=== PATIENT | male | born 1955 | race Caucasian/White ===

== ENCOUNTER → 2018-06-11 | Outpatient (CLI) | payer OTHER ==
--- NOTE | 2018-06-12 15:44 | PCVCIMAG ---
APPROVED REPORT Study performed: 06/11/2018 16:00:47 Exam: Stress Echocardiogram Indication: Chest pain Patient Location: Echo lab Stress Nurse: Karol Austin RN Room #: 1 Status: routine Ht: 6 ft 2 in HR: 62 bpm BP: 138/86 mmHg Rhythm: NSR Medical History Medical History: HTN Cardiac Risk Factors: HTN Previous Cardiac Procedures: none Pretest Chest Pain Characteristics: No chest pain Exercise History: Physically active Procedure The patient underwent an Exercise Stress Test using the Orestes Protocol. Blood pressure, heart rate, and EKG were monitored. An Echocardiogram was performed by food quality technician in four stages in quad fashion. At peak stress, four selected images were obtained and placed side by side with resting images for comparison. Stress Test Details Stress Test: Exercise stress testing was performed using a Orestes protocol. HR Resting HR: 62 bpmMax Heart Rate (APMHR): 156 bpm Max HR Achieved: 160 bpmTarget HR (85% APMHR): 132 bpm % of APMHR: 102 Recovery HR: 93 bpm HR response to stress: Normal HR response to stress BP Resting BP: 138/86 mmHg Max BP: 174/82 mmHg Recovery BP: 156/80 mmHg ECG Resting ECG: Sinus Rhythm Stress ECG: Sinus Rhythm ST Change: Non-ischemic Arrhythmia: Frequent PVCs Recovery ECG: Sinus Rhythm with occ PVCs Recovery ST Change: Non-ischemic Recovery Arrhythmia: PVCs Clinical Reason for Termination: Maximal effort Stress Symptoms: Dyspnea, Fatigue Exercise duration: 9 min sec Highest Stage Achieved: Stage 3: 3.4 mph at 14% grade. Exercise capacity: 10.4 METs Overall Exercise Capacity for Age: Normal Angina Score: None No complications. Stress ECG Conclusion The patient exercised according to the ORESTES protocol for 9:00 mins; achieving a work level of 10.4 METS. The resting heart rate of 62 bpm woody to a maximum heart rate of 160 bpm. This value represent 102% of the maximal, age-predicted heart rate. The resting blood pressure of 138/86 mmHg, woody to a maximum blood pressure of 174/82 mmHg. The exercise test was stopped due to fatigue and dyspnea. Pre-Stress Echo The resting Echocardiogram showed normal left ventricular contractility with an estimated Ejection Fraction of about 55%. Normal wall motion in all segments on baseline images. Post-Stress Echo The stress Echocardiogram showed normal left ventricular contractility with an estimated Ejection Fraction of about 65%. Normal augmentation of wall motion in all segments on post stress images. Clinical No clinical or ECG evidence for ischemia. Conclusion Clinical Response: Non-ischemic Exercise Capacity: Average Stress ECG Response: Non-ischemic Stress Echo Images: Non-ischemic The left ventricle is normal in size and wall thickness in both the rest and stress images. No prior study available for comparison. <Conclusion> The left ventricle is normal in size and wall thickness in both the rest and stress images.
== END | disposition home or self-care (01) ==
LOC: PCVCIMAG 16:11
PROVIDERS: ATTEND Internal Medicine Cardiovascular Disease
DX: I10 Essential (primary) hypertension (principal); R94.31 Abnormal electrocardiogram [ECG] [EKG]
CPT/HCPCS: 93325; 93351